=== PATIENT | female | born 1985 | race Caucasian/White ===

== ENCOUNTER 2023-06-12 00:24 | Day surgery (SDC) | payer OTHER, SELFPAY ==
[2023-06-04 13:05] VITALS: BMI 21.9
--- NOTE | 2023-06-04 13:11 | PC.NURSE ---
Addendum entered by Yanni Arreola RN 06/05/23 15:11: PT INSTRUCTED TO TAKE LAST DOSE OF VITAMIN ON 06/08/23. Original Note: Report to the Outpatient Waiting Room, entrance under the green pavilion located off [facility], at time 0600 on date 06/12/23. Planned Procedure Time: 0730. Time changes happen often and if your time is changed the preop area will call you the afternoon before. - You and your visitor will be asked to self-screen and do not enter if you have any COVID symptoms. - A mask is optional within the hospital at this time. Patients may have clear liquids (water, carbonated beverages, clear teas, apple juice) until 3 hours prior to surgery with a maximum of 20 ounces. - No food from midnight until time of surgery Take the following medications with a SIP of water the morning of surgery: CONTROL DO NOT STOP ANY OF YOUR OTHER PRESCRIPTION MEDICATIONS PRIOR TO SURGERY ?EXCEPT THE FOLLOWING Medications to discontinue per physician: N/A Date to take last dose: N/A Please no make-up, nail guatemalan, hairspray, perfume, deodorant, or body powder the day of surgery. No jewelry (including any body piercings) or valuables the day of surgery, leave them at home. Please take a shower or bath the night before, or the morning of, surgery with an antibacterial soap. Wear comfortable, loose fitting clothing. - Jewelry must be removed prior to entering the operating room. Rings and piercings that are not removed may be cut off. - The hospital will not accept responsibility for valuables. - Please leave all valuables, including medications, at home the day of surgery. If you are going home after surgery, a licensed interstate bus driver must drive you home. - NO public transportation without another adult if you receive anesthesia. - We recommend that an adult stay with you for 24 hours following discharge. - We also recommend that you do not drive, make important decision, drink alcoholic beverages, or take any drugs that were not prescribed by your health care provider for at least 24 hours after your discharge time. Follow any additional instructions given to you from your surgeon. If you or anyone in your household have experienced Covid symptoms in the past week, please notify your surgeon or the nurse liaison at the phone number below for possible testing. Telephone instructions given to PT - GINGER DANIELS and asked if any additional questions and then verbalized understanding. Patient advised to call surgeon office or pre surgery nurse liaison [phone] if any additional questions.
[2023-06-12] VITALS (10 sets, daily range): BP systolic 102–121; BP diastolic 64–77; PULSE 48–94; RESP 12–17; TEMP 36.7–37.2; O2SAT 98–100; BMI 21.3
--- NOTE | 2023-06-12 06:40 | P.PNAN_ITS ---
Anes - Initial Pre Proc Eval Procedure: Operation Date: 06/12/23 07:30 Proposed Procedures p Bilateral Breast Augmentation - Deangelo Mosqueda MD Date/Time: 06/12/23 06:40 Surgeon: Deangelo Mosqueda MD Pre Op Diagnosis: micromastia Patient Data Age: 38 Gender: F Height: 1.7 m Weight: 63.5 kg Allergies Allergy/AdvReac Type Severity Reaction Status Date / Time caffeine Allergy Unknown Chest Pain Verified 06/12/23 06:29 Home Medications Medication Instructions Recorded Confirmed Type multivitamin 1 tablet PO DAILY 06/04/23 06/12/23 History norethindrone 1 mg-e. estradiol 20 1 tablet PO DAILY 06/04/23 06/04/23 History mcg (24)-iron 75 mg (4) chew tablet ([place]ibel[place] 24 Fe) Patient hx anesthesia problems: none Family hx anesthesia problems: none Results Review: All pre-operative results and documents have been reviewed as part of the pre- operative evaluation. [facility] Surgical History Surgical History History of appendectomy Social History Social History Smoking status: Never smoker Alcohol intake: current Alcohol use details: VERY RARE Substance use: never Substance use type: does not use Living arrangements: with family Spiritual care concerns: No Anes - Eval Final PreProcedure Day of Procedure 06/12/23 06:40 Patient weight: normal Heart: regular rate and rhythm Lungs: clear to auscultation Airway: Mallampati scale class II Neurological: alert and oriented Last oral intake: >/= 8 hours ASA classification: I Emergent: no Anesthetic plan: proceed Anesthesia type and monitoring: general LMA and standard monitoring Results Review: All pre-operative results and documents have been reviewed as part of the pre- operative evaluation. Informed Consent: The patient's anesthetic plan and its attendant risks and benefits were discussed with the patient/family/POA. Questions were solicited and answers provided to the satisfaction of the patient/family/POA.
[2023-06-12] MEDS: LACTATED RINGERS 1,000 ML 30 ML IV CONT ×2 (07:07→08:54)
--- NOTE | 2023-06-12 07:14 | WPDHPUPDATE1 ---
History and Physical Update Update Date/Time: 06/12/23 07:14 History and Physical has been reviewed, including an updated exam of the patient. There are NO changes in the patient's condition. Risks, benefits, and alternatives have been discussed and questions answered. Patient agrees to proceed with procedure.
--- NOTE | 2023-06-12 07:14 | W.PM.PROC2 ---
Procedure Note - Detailed Date of Procedure 06/12/23 Pre-op Diagnosis micromastia Post-op Diagnosis Same Procedure Performed Bilateral augmentation mammaplasty Surgeon Deangelo Mosqueda MD Anesthesia General Findings Bilateral Brian Saline implants Right- REF# [id number] SN [id number] filled to 450cc Left- REF# [id number] SN [id number] filled to 450cc Description of Procedure She is here today for bilateral breast augmentation. Previously and again today the risks, benefits, alternatives were discussed in extensive detail. I wanted her to be very realistic about the risks involved as well as expectations. We spent extensive time discussing final implant size and her selection as above. We discussed aftercare and what to monitor for. Made sure answered all of her questions to her satisfaction today and consent was obtained. Marked in the preoperative holding area with their verification. The patient was taken to the operating room placed supine on the operating table. Anesthesia was provided by anesthesiology. A surgical time-out was taken. We cleansed the skin and 1% lidocaine and 0.25% Marcaine with epinephrine was used anesthetize as a field block. She was prepped and draped in a standard sterile fashion. Tegaderm nipple Arellano were placed. A 15 blade used to make an incision along the inframammary fold. Dissection was continued at 45 degree angle until the chest wall as identified. I incised the pectoralis major along its inferior border and completely released the inferior border leaving the medial border intact. I created a subpectoral pocket in the appropriate dimensions based on our preoperative planning for the implant. I then copiously irrigated with saline solution and verified a strict hemostasis. Next the use a triple antibiotic and Betadine containing solution to irrigate the pocket. I washed my gloves with the triple antibiotic and Betadine solution. We washed the implant immediately upon opening it with this solution and only opened it when we needed it. I used implant funnel and no-touch technique. The implant was introduced into the pocket using the funnel. Having verified positioning of the implant this was closed using 2-0 PDS followed by 3-0 Monocryl in a running subcuticular 4-0 Monocryl followed by tissue glue. Fluffs and surgical bra were placed. Patient was awoke and taken to PACU without difficulty. All instrument sponge counts were correct at the end of the case. Estimated Blood Loss 20 Drains No Packing No Pathology None sent Complications No immediate complications Condition Stable Disposition PACU
[2023-06-12] MEDS: SCOPOLAMINE 1.5 MG PATCH TRANSDERM (07:15)
[2023-06-12] MEDS: TRANEXAMIC ACID 1,000MG/ISO100 1,000 MG/100 ML BAG 200 MG IVPB (07:26)
[2023-06-12] MEDS: ceFAZolin 2 GM/D5W 50 ML 2 GM/50 ML BAG IVPB (07:35)
[2023-06-12] MEDS: LIDO 1%/EPINEPHRINE 1:100,000 20 ML VIAL 30 ML INFILTRATE (07:45)
[2023-06-12] MEDS: NACL 0.9% IRRIG POUR BOTTLE 900 ML, GENTAMICIN SULFATE INJ 160 MG, ceFAZolin 2 GM, POVI... IRRIGATION (07:49)
[2023-06-12] MEDS: KETOROLAC 15 MG/ML VIAL (*BKC) IV PUSH (08:05)
[2023-06-12] MEDS: fentaNYL CITRATE INJ (*CRX) 100 MCG/2 ML VIAL 25 MCG IV PUSH ×8 (08:47→09:19)
[2023-06-12] MEDS: ONDANSETRON INJ 4 MG/2 ML VIAL IV PUSH (09:47)
[2023-06-12] MEDS: FAMOTIDINE 20 MG/2 ML VIAL IV PUSH (10:21)
[2023-06-12] MEDS: diphenhydrAMINE HCl INJ 50 MG/ML VIAL 25 MG IV PUSH (10:21)
== END 2023-06-12 11:09 | disposition home or self-care (01) ==
PROVIDERS: PCP Family Medicine; Visit Provider Surgery Plastic and Reconstructive Surgery
PROC: (CPT 19325; principal; 2023-06-12 07:30)
DX: Z41.1 Encounter for cosmetic surgery (principal); N64.82 Hypoplasia of breast
CPT/HCPCS: 19325; A9270; J0690; J1100; J1200; J1580; J1885; J2250; J2405; J2704; J3010; J7120

== ENCOUNTER 2023-12-27 10:43 | Emergency (ER) | payer OTHER, SELFPAY ==
--- NOTE | ~2023-12-27 | CT_ITS ---
EXAMINATION: CT abdomen pelvis wo con DATE: 12/27/2023 11:35 INDICATION: Right lower quadrant abdominal pain radiating to back. History of appendectomy and right oophorectomy TECHNIQUE: Computed tomography (CT) of the abdomen and pelvis was performed without intravenous contr ast. Automated exposure control and iterative reconstruction technique were employed. Exam dose: 249 .21 mGy-cm total exam DLP. COMPARISON: 02/26/2019 CT abdomen pelvis FINDINGS: Bilateral breast implants. The lung bases are clear of infiltrate or consolidation. Normal heart size. No pericardial or pleural effusion. The liver, gallbladder, bile ducts, spleen, pancreas and pancreatic duct are unremarkable. Normal morphology of the adrenal glands. 4 mm nonobstructing right renal calculus. An additional pinpoint nonobstructing right renal calculus is noted. Approximately 3 x 4.4 mm distal right ureteral calculus with moderate right hydroureteronephrosis. There are several nonobstructing left renal calculi, largest measuring up to 2.7 x 4 mm. The urinary bladder is unremarkable. Retroverted uterus. Normal caliber of the abdominal aorta. No intraperitoneal or retroperitoneal or pelvic mass lesion or adenopathy or ascites. Status post appendectomy. No bowel obstruction or intraperitoneal free air. No suspicious osteolytic or osteoblastic lesions. IMPRESSION: 3 x 4.4 mm distal right ureteral calculus with moderate right hydroureteronephrosis Bilateral nephrolithiasis Retroverted uterus Status post hysterectomy. Reviewed, dictated and finalized at [facility] Reviewed, dictated and finalized at [facility]. IMPRESSION: 3 x 4.4 mm distal right ureteral calculus with moderate right hydr oureteronephrosis Bilateral nephrolithiasis Retroverted uterus Status post hysterectomy.
[2023-12-27 10:52] VITALS: BP 115/85; PULSE 64; RESP 24; TEMP 36.6; O2SAT 100
[2023-12-27 11:04] LABS: Basophils Percent Auto 0.6 % (0.2-1.2); Eosinophils Absolute Auto 0.1 K/mm3 (0-0.3); Eosinophils Percent Auto 0.8 % (0-4.4); Hematocrit 38.5 % (37.0-47.0); Hemoglobin 13.1 g/dL (12.0-15.0); Immature Granulocyte Absolute 0.02 K/mm3 (0.00-0.031); Immature Granulocyte Percent A 0.3 % (0-0.5); Lymphocytes Absolute Auto 1.88 K/mm3 (0.9-3.2); Lymphocytes Percent Auto 29.5 % (18.3-44.2); Mean Corpuscular Hemoglobin 28.5 pg (26-34); Mean Corpuscular Volume 83.9 fl (80-100); Mean Platelet Volume 9.9 fl (7.4-10.4); Monocytes Absolute Auto 0.5 K/mm3 (0.1-0.6); Monocytes Percent Auto 8.5 % (2.6-8.5); Neutrophils Absolute Auto 3.8 K/mm3 (1.3-6.7); Neutrophils Percent Auto 60.3 % (45.5-73.1); Platelet Count Result 216 k/mm3 (150-375); Red Blood Count 4.59 M/mm3 (4.2-5.4); Red Cell Distribution Width 13.2 % (11.5-14.5); White Blood Count 6.4 K/mm3 (4.5-10.0)
[2023-12-27 11:13] LABS: Alanine Aminotransferase 20 U/L (6-35); Albumin Level 4.5 g/dL (3.5-5.1); Alkaline Phosphatase 72 U/L (38-126); Anion Gap 9 mmol/L (4-12); Aspartate Amino Transferase 22 U/L (14-36); Bilirubin,Total 0.7 mg/dL (0.2-1.3); Blood Urea Nitrogen 15 mg/dL (7-17); Calcium 9.7 mg/dL (8.4-10.2); Carbon Dioxide 20 mmol/L (22-30); Chloride 108 mmol/L (98-107); Estimated CRCL calculation 90 ml/min; Estimated Glomerular Filt Rate > 60; Glucose 120 mg/dL (65-110); Lipase 88 U/L (23-300); Potassium 3.9 mmol/L (3.4-5.0); Sodium 137 mmol/L (137-145)
[2023-12-27] MEDS: HYDROmorphone HCL INJ (*CRX) 1 MG/ML SYR IV PUSH (11:18)
[2023-12-27] MEDS: ONDANSETRON INJ 4 MG/2 ML VIAL IV PUSH (11:18)
--- NOTE | 2023-12-27 11:20 | ED.ABDPAIN ---
HPI - Abdominal Pain General Chief Complaint: Abdominal Pain Stated Complaint: RLQ pain Time Seen by Provider: 12/27/23 10:52 History of Present Illness HPI narrative: 38-year-old female presenting to the emergency department for evaluation of onset of right lower quadrant pain. Patient states this morning when she was shopping approximately 830 she had onset of right lower quadrant pain. Patient has prior history of appendectomy and oophorectomy. Patient reports he did have a bowel movement this did not change her pain. Since then patient has had worsening pain. Upon arrival emergency department patient initially declined any medications for pain control patient appeared to be in distress. Related Data Home Medications Medication Instructions Recorded Confirmed multivitamin 1 tablet PO DAILY 06/04/23 06/12/23 norethindrone 1 mg-e. estradiol 20 1 tablet PO DAILY 06/04/23 06/04/23 mcg (24)-iron 75 mg (4) chew tablet (Mibelas 24 Fe) Allergies Allergy/AdvReac Type Severity Reaction Status Date / Time caffeine Allergy Unknown Chest Pain Verified 12/27/23 10:53 Review of Systems Review of Systems: All systems reviewed & are unremarkable except as noted in HPI and below [facility] Surgical History Surgical History History of appendectomy Social History Social History Smoking status: Never smoker Alcohol intake: current Alcohol use details: VERY RARE Substance use: never Substance use type: does not use Living arrangements: with family Spiritual care concerns: No Exam Narrative: APPEARANCE: Uncomfortable appearing on presentation HEAD: normocephalic, atraumatic. EYES: PERRLA/EOMI, conjunctivae clear. NOSE: Normal no drainage EARS:TMS clear with good light reflex. THROAT: Pharynx clear, no exudate. NECK: Supple. No adenopathy, no masses. RESPIRATORY: Airway patent, respirations nonlabored. Clear to auscultation bilaterally, no rales, rhonchi, wheezing. CARDIOVASCULAR: Regular rate and rhythm without murmurs rubs or gallops. ABDOMINAL: Soft, right lower quadrant tenderness MUSCULOSKELETAL: Moves all extremities. Strength/ROM intact, No edema, No calf tenderness. NEURO: Alert. Cranial nerves II through XII intact. Grossly intact SKIN: Warm, dry. Normal Color Course Course Emergency Course: Patient improved with treatment was discharged home Vital Signs Vital signs: Vital Signs Temperature 97.8 F 12/27/23 10:52 Pulse Rate 64 12/27/23 10:52 Respiratory Rate 24 H 12/27/23 10:52 Blood Pressure 115/85 12/27/23 10:52 Pulse Oximetry 100 12/27/23 10:52 Temperature 97.8 F 12/27/23 10:52 Pulse Rate 72 12/27/23 12:56 Respiratory Rate 20 12/27/23 12:56 Blood Pressure 119/79 12/27/23 12:56 Pulse Oximetry 100 12/27/23 12:56 MDM - Abdominal Pain MDM Narrative Medical decision making narrative: 38-year-old female present to the emergency department for evaluation of right lower quadrant abdominal pain. Ultimately patient did require IV Zofran and IV Dilaudid. CT scan did show a distal right ureteral calculi. Patient was updated results of the workup and plan for treatment for home. All questions concerns were addressed. Differential Diagnosis Differential diagnosis: Likely abdominal pain, calculus of kidney, constipation, diverticulitis, gastroenteritis, pancreatitis and small bowel obstruction Lab Data Attestation: I reviewed the patient's lab results. 12/27/23 10:58 12/27/23 10:58 Labs: Lab Results 12/27/23 12/27/23 Range/Units 10:58 11:45 WBC 6.4 (4.5-10.0) K/mm3 RBC 4.59 (4.2-5.4) M/mm3 Hgb 13.1 (12.0-15.0) g/dL Hct 38.5 (37.0-47.0) % MCV 83.9 (80-100) fl MCH 28.5 (26-34) pg MCHC 34.0 (32-36) g/dl RDW 13.2 (11.5-14.5) % Plt Count 216 (150-375) k/mm3 MPV 9.9 (7.4
[2023-12-27 12:01] LABS: Appearance Urine Cloudy (Clear); Bacteria Urine None Seen /hpf; Bilirubin Urine Negative (Negative); Blood Urine Non-Hemolyzed Trace (Negative); Color Urine Yellow (Yellow); Glucose Urine UA Negative (Negative); Ketones Urine 1+ mg/dL (Negative); Leukocyte Esterase Ur Negative LEU/UL (Negative); Nitrate Urine Negative (Negative); Non Pathogenic Casts 0-2; Protein Urine Trace mg/dL (Negative); Specific Grav Ur 1.019 (1.001-1.035); Squamous Epithelial Cell Urine Occasional /hpf (Few); WBC Urine 0-5 /hpf (0-3)
[2023-12-27 12:02] LABS: Add Urine Microscopic? YES
[2023-12-27] MEDS: KETOROLAC 15 MG/ML VIAL (*BKC) IV PUSH (12:06)
[2023-12-27] MEDS: HYDROcodone/acetaminophen (*CRX) 5-325 MG TABLET 1 TAB PO (12:48)
[2023-12-27] MEDS: TAMSULOSIN HCL 0.4 MG CAPSULE PO (12:48)
[2023-12-27 12:56] VITALS: BP 119/79; PULSE 72; RESP 20; O2SAT 100
== END 2023-12-27 12:59 | disposition home or self-care (01) ==
PROVIDERS: Emergency Provider Emergency Medicine; PCP Family Medicine
DX: N13.2 Hydronephrosis with renal and ureteral calculous obstruction (principal); N85.4 Malposition of uterus
CPT/HCPCS: 36415; 74176; 80053; 81001; 83690; 85025; 96374; 96375; 99284; A9270; J1170; J1885; J2405